=== PATIENT | female | born 1970 | race Caucasian/White ===

== ENCOUNTER 2020-03-22 14:14 | Emergency (ER) | payer OTHER ==
[2020-03-22 15:22] VITALS: BP 164/100; PULSE 78; TEMP 98.6; BMI 30.4
[2020-03-22] MEDS: ALBUTEROL SO4 2.5/IPRATROPIUM 0.5 INH SOL 3 ML VIAL.NEB. NEB SCH ×4 (17:15→18:00)
--- NOTE | 2020-03-22 17:25 | PDOC ---
Documentation entered by Mary Clark SCRIBE, acting as scribe for Berta Brunson MD. Berta Brunson MD: This documentation has been prepared by the Katrin waggoner Sydney, SCRIBE, under my direction and personally reviewed by me in its entirety. I confirm that the documentation accurately reflects all work, treatment, procedures, and medical decision making performed by me. Attending Attestation - Resident Resident Name: TatiannaRainaJamel - ED Attending Attestation I have performed the following: I have examined & evaluated the patient, The case was reviewed & discussed with the resident, I agree w/resident's findings & plan, Exceptions are as noted - HPI HPI: 03/22/20 17:25 Patient is a 49 year old female with a significant past medical history of Hepatitis B who presents to the ED with two months of shortness of breath and productive cough with clear phlegm. As per patient, she was sent by her PCP Dr. Wright to rule out encephalopathy secondary to HepB. Patient also endorses more recent episodes of nausea, vomiting, and diarrhea. Patient states she has been seen multiple times for his symptoms and has been prescribed unspecific medications with no relief of her symptoms. Denies fever, chills, headache, or urinary changes. Allergies: NKDA PCP: Dr. Wright - Physicial Exam PE: 03/22/20 18:16 wnwd 49 yo female p/w cough head ncat neck supple lung no crackles , no rales cvs [id number] abdomen nontender skin warm and dry extremities no erythema, no clubbing, no edema neuro alert,conversant,moving all extremities - Medical Decision Making 03/22/20 18:18 cxr napd labs reviewed imp bronchitis plan zithromax, d/c home Discharge - Discharge Information Problems reviewed: Yes Clinical Impression/Diagnosis: Shortness of breath - Additional Discharge Information Prescriptions: Azithromycin [Zithromax Tri-Cuate (3 DAYS) -] 500 mg PO DAILY #3 tablet - Follow up/Referral Referrals: Abby Wright MD [Primary Care Provider] - - Patient Discharge Instructions Additional Instructions: You were seen in the emergency department for cough and shortness of breath. You received EKG and chest x ray both of which were normal. You also received labs which were normal as well. You were considered medically stable and safe for discharge. Please return to the ED if you experience a worsening of symptoms. Print Language: MALDIVIAN - Post Discharge Activity
[2020-03-22 17:27] LABS: BASO % 0.9 % (0-2.0); EOS % 10.7 % (0-4.5); HEMATOCRIT 40.9 % (32.4-45.2); HEMOGLOBIN 13.9 GM/dL (10.7-15.3); LYMPH % 43.4 % (8-40); MCH 30.4 pg (25.7-33.7); MCHC 33.8 g/dl (32.0-36.0); MEAN CELL VOLUME 89.8 fl (80-96); MEAN PLT VOLUME 9.9 fl (7.5-11.1); MONO % 9.3 % (3.8-10.2); NEUT % 35.7 % (42.8-82.8); PLATELET COUNT 178 K/MM3 (134-434); RBC 4.56 M/mm3 (3.60-5.2); RDW 13.2 % (11.6-15.6); WHITE BLOOD COUNT 6.1 K/mm3 (4.0-10.0)
--- NOTE | 2020-03-22 17:41 | PDOC ---
History of Present Illness - General Chief Complaint: Weakness Stated Complaint: Weakness Time Seen by Provider: 03/22/20 15:40 - History of Present Illness Initial Comments: 49 YOF pmh hepatitis B presents with SOB and cough of 2 months duration. Patient reports that she has had cough productive of clear phlegm with difficulty b reathing, and chest pain for approximately 2 months. Has been seen multiple times during this period and received unspecified medications without relief. During this time she has also been tested for COVID twice with negative results. She presented to her priary care Dr. Garland this AM with these complaints as well as lethargy and was recommended to present to the ED to rule out encephalopathy given lethargy in the context of hepatitis B. Patient reports recent bout of diarrhea as well as persistent nausea w/o vomiting. Patient denies F/C, confusion blood in sputum, changes in urinary or bowel habits. 03/22/20 17:46 Past History - Medical History Allergies/Adverse Reactions: Allergies Allergy/AdvReac Type Severity Reaction Status Date / Time No Known Allergies Allergy Unverified 03/22/20 18:29 Home Medications: Ambulatory Orders Azithromycin [Zithromax Tri-Cuate (3 DAYS) -] 500 mg PO DAILY #3 tablet 03/22/20 COPD: No GI Disorders: Yes (Hep B) - Reproductive History Is Patient Now?: No - Psycho-Social/Smoking History Smoking History: Never smoked - Substance Abuse Hx (Audit-C & DAST Scrn) How often the patient has a drink containing alcohol: Never Score: In Men: 4 or > Positive; In Women: 3 or > Positive: 0 Screen Result (Pos requires Nsg. Audit-10AR): Negative In the last yr the pt used illegal drug/Rx for NonMed reason: No Score: Yes response is considered Positive: 0 Screen Result (Positive result requires Nsg. DAST-10): Negative Review of Systems - Review of Systems Able to Perform ROS?: Yes Is the patient limited Frisian proficient: Yes Constitutional: No: Chills, Diaphoresis, Fever HEENTM: Yes: Throat Pain. No: Recent change in vision, Double Vision Respiratory: Yes: Cough, Shortness of Breath, SOB with Exertion Cardiac (ROS): Yes: Chest Pain. No: Edema ABD/GI: Yes: Nausea. No: Vomiting : No: Burning, Dysuria, Frequency, Flank Pain Neurological: Yes: Weakness, Dizziness *Physical Exam - Vital Signs Last Vital Signs Temp Pulse Resp BP Pulse Ox 98.6 F 78 16 164/100 96 03/22/20 14:14 03/22/20 14:14 03/22/20 14:14 03/22/20 14:14 03/22/20 14:14 ED Treatment Course - LABORATORY CBC & Chemistry Diagram: 03/22/20 17:03 03/22/20 17:03 - ADDITIONAL ORDERS Additional order review: 03/22/20 17:03 RBC 4.56 MCV 89.8 MCHC 33.8 RDW 13.2 MPV 9.9 Neutrophils % 35.7 L Lymphocytes % 43.4 H Monocytes % 9.3 Eosinophils % 10.7 H Basophils % 0.9 - RADIOLOGY Radiology Studies Ordered: Category Date Time Status CHEST PA & LAT [RAD] Stat Radiology 03/22/20 16:36 Completed Medical Decision Making - Medical Decision Making 49 YOF pmh hepatitis B presents with SOB and cough of 2 months duration. Patient reports that she has had cough productive of clear phlegm with difficulty breathing, and chest pain for approximately 2 months. Has been seen multiple times during this period and received unspecified medications without relief. During this time she has also been tested for COVID twice with negative results. She presented to her priary care Dr. Garland this AM with these complaints as well as lethargy and was recommended to present to the ED to rule out encephalopathy given lethargy in the context of hepatitis B. Patient reports recent bout of diarrhea as well as persistent nausea w/o vomiting. Patient denies F/C, confusion blood in sputum, changes in urinary or bowel habits. Vitals stable on arrival. Physical exam revealing of lathargic patient with wheeze appreciable on auscultation. ddx inlcudes but is not limitted to hepative encephalopathy, pneumonia, asthma. Plan: EKG, CXR, CBC, CMP, dunebs, UA/UC Reassess: EKG and CXR demonstrate no accute changes, labs wnl, patient feels better after duonebs, will d/c patient with azithromycin to cover for atypical pneumonia. dispo: d/c patient to home Discharge - Discharge Information Problems reviewed: Yes Clinical Impression/Diagnosis: Shortness of breath - Admission No - Additional Discharge Information Prescriptions: Azithromycin [Zithromax Tri-Cuate (3 DAYS) -] 500 mg PO DAILY #3 tablet - Follow up/Referral Referrals: Abby Wright MD [Primary Care Provider] - - Patient Discharge Instructions Additional Instructions: You were seen in the emergency department for cough and shortness of breath. You received EKG and chest x ray both of which were normal. You also received labs which were normal as well. You were considered medically stable and safe for discharge. Please return to the ED if you experience a worsening of symptoms. Print Language: KAZAKH - Post Discharge Activity
[2020-03-22 17:53] LABS: BILIRUBIN,TOTAL 1.1 mg/dL (0.2-1); BLOOD UREA NITROGEN 9.8 mg/dL (7-18); CALCIUM 9.4 mg/dL (8.5-10.1); CREATININE 0.8 mg/dL (0.55-1.3); POTASSIUM 4.1 mmol/L (3.5-5.1)
[2020-03-22] MEDS ORDERED: AZITHROMYCIN 500 MG TABLET PO ONE (18:13)
[2020-03-22] MEDS ORDERED: AZITHROMYCIN 250 MG TABLET ONE (18:46)
[2020-03-22 19:09] LABS: PH,URINE 6.5 (5.0-8.0); URINE APPEARANCE CLEAR; URINE BILIRUBIN NEGATIVE (NEGATIVE); URINE COLOR YELLOW; URINE GLUCOSE (UA) NEGATIVE (NEGATIVE); URINE KETONE 2+ (NEGATIVE); URINE LEUK ESTERASE NEGATIVE (NEGATIVE); URINE NITRITE NEGATIVE (NEGATIVE); URINE PROTEIN NEGATIVE (NEGATIVE); URINE UROBILINOGEN 0.2 mg/dL (0.2-1.0)
--- NOTE | 2020-03-23 10:31 | EKG ---
Test Reason : Blood Pressure : / mmHG Vent. Rate : 065 BPM Atrial Rate : 065 BPM P-R Int : 172 ms QRS Dur : 080 ms QT Int : 418 ms P-R-T Axes : 040 041 -04 degrees QTc Int : 434 ms NORMAL SINUS RHYTHM WITH SINUS ARRHYTHMIA SEPTAL INFARCT , AGE UNDETERMINED T WAVE ABNORMALITY, CONSIDER ANTERIOR ISCHEMIA ABNORMAL ECG NO PREVIOUS ECGS AVAILABLE Confirmed by MD Galvan Edward ([id number]) on 03/23/2020 10:30:53 AM Referred By: Confirmed By:Richard Galvan MD
== END 2020-03-22 19:17 | disposition home or self-care (01) ==
LOC: JER 14:14
PROC: 3E0F7GC Introduction of Other Therapeutic Substance into Respiratory Tract, Via Natural or Artificial Opening (ICD-10-PCS; principal; 2020-03-22)
DX: R06.02 Shortness of breath (principal)
CPT/HCPCS: 36415; 71046-TC-FY; 80053; 81003; 85025; 87077; 87086; 93005; 93010; 99285-25